=== PATIENT | female | born 1935 | race Hispanic/Latino ===

== ENCOUNTER 2017-05-14 12:01 | Observation (INO) | payer OTHER, MEDICARE ==
[~2017-05-14] VITALS: Ht 152.4 cm; Wt 64.0 kg
[2017-05-14 12:46] LABS: BASOPHILS % (AUTO) 0.5 % (0.0-5.0); EOSINOPHILS % (AUTO) 1.5 % (0.0-8.0); LYMPHOCYTES % (AUTO) 36.5 % (21.0-51.0); MEAN CORPUSCULAR HEMOGLOBIN 29.4 pg (27.0-33.0); MEAN CORPUSCULAR HGB CONC 34.5 g/dL (32.0-36.0); MEAN CORPUSCULAR VOLUME 85.1 fL (79-99); MONOCYTES % (AUTO) 11.7 % (3.0-13.0); NEUTROPHILS % (AUTO) 49.8 % (40.0-77.0); PLATELET COUNT (AUTO) 253 K/uL (130-400); RED BLOOD CELL COUNT(AUTO) 4.11 MIL/uL (4.00-5.50); WHITE BLOOD COUNT (AUTO) 9.9 K/uL (4.8-10.8)
[2017-05-14 13:04] LABS: INR 0.96 (0.85-1.15); PROTHROMBIN TIME 10.1 SEC (9.6-11.6)
[2017-05-14 13:14] LABS: ALBUMIN 3.9 g/dL (3.5-5.0); BILIRUBIN,TOTAL 0.4 mg/dL (0.2-1.0); CREATINE KINASE MB 6.9 ng/mL (0.5-3.6); POTASSIUM 3.3 mmol/L (3.5-5.1); TOTAL PROTEIN, SERUM 7.1 g/dL (6.0-8.3)
[2017-05-14] MEDS ORDERED: LIDOCAINE HCL-MPF 1% 2ML VIAL IVP PRN (15:30)
[2017-05-14] MEDS ORDERED: ACETAMINOPHEN-CODEINE 300/30MG TAB PO PRN ×2 (15:30)
[2017-05-14] MEDS ORDERED: KETOROLAC TROMETHAMINE 15MG/ML IV PRN (15:30)
[2017-05-14] MEDS ORDERED: LACTULOSE 20 GM/30 ML UDCUP PO PRN (15:30)
[2017-05-14] MEDS ORDERED: MORPHINE SULFATE 4 MG/1ML SYG IV PRN (15:30)
[2017-05-14] MEDS ORDERED: ONDANSETRON HCL 4 MG/2 ML VIAL IV PRN (15:30)
[2017-05-14] MEDS ORDERED: MORPHINE SULFATE 2 MG/ML 1ML SYG IV PRN (15:30)
[2017-05-14] MEDS ORDERED: TRAMADOL HCL 50 MG TABLET PO PRN (15:30)
[2017-05-14] MEDS ORDERED: GUAIFENESIN-DM 200/20 MG 10 ML PO PRN (15:30)
[2017-05-14] MEDS ORDERED: MAG HYDROX/AL HYDROX/SIMETH ES 30 ML SUSP UDCUP PO PRN (15:30)
[2017-05-14] MEDS ORDERED: POTASSIUM CHLORIDE 20 MEQ ERTAB PO PRN (15:30)
[2017-05-14] MEDS ORDERED: POTASSIUM CHLORIDE 20MEQ/100ML 100 ML IV PRN (15:30)
[2017-05-14] MEDS ORDERED: HYDRALAZINE HCL 20 MG/ML VIAL IV PRN (15:30)
[2017-05-14] MEDS ORDERED: ACETAMINOPHEN 325 MG TAB PO PRN ×2 (15:30)
[2017-05-14] MEDS ORDERED: NITROGLYCERIN 0.4 MG SL TAB SL PRN (15:30)
[2017-05-14 18:54] LABS: CREATINE KINASE MB 4.2 ng/mL (0.5-3.6); CREATINE KINASE, TOTAL 217 U/L (21-232); MYOGLOBIN 79 ng/mL (10-92); TROPONIN I < 0.04 ng/mL (0.00-0.06)
[2017-05-14] MEDS ORDERED: FAMOTIDINE 20MG TAB 20 MG TAB ONE (20:31)
[2017-05-14] MEDS ORDERED: METOPROLOL TARTRATE 25 MG TAB ONE (20:31)
[2017-05-14] MEDS ORDERED: POTASSIUM CHLORIDE 20 MEQ ERTAB PO ONE (20:31)
[2017-05-14 20:56] VITALS: BP 163/74
[2017-05-14] MEDS: INSULIN HUMULIN R 100 UNIT/ML 3ML SQ SCH (21:00)
[2017-05-14] MEDS: METOPROLOL TARTRATE 25 MG TAB PO SCH (21:00)
[2017-05-14] MEDS: ENOXAPARIN SODIUM 80 MG/0.8 ML SQ SCH (22:29)
[2017-05-14] MEDS: POTASSIUM CHLORIDE 10% ELIXIR 20 MEQ/15 ML UDCUP PO PRN (23:09)
[2017-05-14 23:49] VITALS: BP 136/65
[2017-05-15] MEDS ORDERED: FLUT16H EN (00:18)
[2017-05-15] MEDS ORDERED: FURO20TA4 PO (00:18)
[2017-05-15] MEDS ORDERED: LEVO75TA10 PO (00:18)
[2017-05-15] MEDS ORDERED: ATOR20TA65 PO (00:18)
[2017-05-15] MEDS ORDERED: AEC81 PO (00:18)
[2017-05-15] MEDS ORDERED: INSU10VI4 SQ ×2 (00:18)
[2017-05-15] MEDS ORDERED: OMEP20CA10 PO (00:44)
[2017-05-15] MEDS ORDERED: METO25TA6 PO (00:44)
[2017-05-15] MEDS ORDERED: BACL10TA PO (00:44)
[2017-05-15] MEDS ORDERED: FAMO40TA7 PO (00:44)
[2017-05-15] MEDS ORDERED: METF-526 PO (00:44)
[2017-05-15] MEDS ORDERED: TRAM50TA4 PO ×2 (00:44)
[2017-05-15] MEDS ORDERED: DONE5TAB33 PO (00:44)
[2017-05-15] MEDS ORDERED: PREG50 PO (00:44)
[2017-05-15] MEDS: POTASSIUM CHLORIDE 10% ELIXIR 20 MEQ/15 ML UDCUP PO PRN (01:36)
[2017-05-15 02:32] LABS: CREATINE KINASE, TOTAL 173 U/L (21-232); MYOGLOBIN 58 ng/mL (10-92); TROPONIN I < 0.04 ng/mL (0.00-0.06)
[2017-05-15 02:39] LABS: CREATININE 0.9 mg/dL (0.5-1.5); POTASSIUM 4.8 mmol/L (3.5-5.1)
[2017-05-15 03:55] VITALS: BP 143/70
[2017-05-15] MEDS: INSULIN HUMULIN R 100 UNIT/ML 3ML SQ SCH ×4 (06:04→21:00)
[2017-05-15] MEDS: LEVOTHYROXINE 75 MCG TABLET PO SCH (06:11)
[2017-05-15 07:31] VITALS: BP 131/52
[2017-05-15] MEDS ORDERED: PREGABALIN 25 MG CAP PO ONE (09:00)
[2017-05-15] MEDS ORDERED: DONEPEZIL HCL 5 MG TAB PO SCH ×2 (09:00→21:00)
[2017-05-15] MEDS ORDERED: FAMOTIDINE 20MG TAB 20 MG TAB PO SCH ×2 (09:00→21:00)
[2017-05-15] MEDS: DRONEDARONE HYDROCHLORIDE 400 MG TABLET PO SCH ×2 (09:06→21:27)
[2017-05-15] MEDS: METOPROLOL TARTRATE 25 MG TAB PO SCH ×2 (09:06→21:28)
[2017-05-15] MEDS: FUROSEMIDE 40 MG TABLET PO SCH (09:06)
[2017-05-15] MEDS: ENOXAPARIN SODIUM 80 MG/0.8 ML SQ SCH ×2 (09:07→21:27)
[2017-05-15] MEDS: ASPIRIN 81MG TAB.CHEW PO SCH (09:12)
[2017-05-15] MEDS: FLUTICASONE PROPIONATE 50MCG/SPRAY 16 GM BOTTLE EN SCH (09:15)
[2017-05-15] MEDS ORDERED: BACLOFEN 10 MG TABLET PO PRN (10:45)
[2017-05-15 11:33] VITALS: BP 116/50
[2017-05-15] MEDS: METFORMIN HCL 500 MG TABLET PO SCH (16:25)
[2017-05-15 16:30] VITALS: BP 137/62
[2017-05-15 19:47] VITALS: BP 152/76
[2017-05-15] MEDS ORDERED: ATORVASTATIN CALCIUM 20 MG TABLET PO SCH (21:00)
[2017-05-15 23:43] VITALS: BP 143/78
[2017-05-16 03:56] VITALS: BP 119/50
[2017-05-16] MEDS: INSULIN HUMULIN R 100 UNIT/ML 3ML SQ SCH ×2 (06:13→11:39)
[2017-05-16] MEDS: LEVOTHYROXINE 75 MCG TABLET PO SCH (06:26)
[2017-05-16 07:35] VITALS: BP 136/60
[2017-05-16] MEDS: METFORMIN HCL 500 MG TABLET PO SCH (08:09)
[2017-05-16] MEDS: ASPIRIN 81MG TAB.CHEW PO SCH (08:10)
[2017-05-16] MEDS: DRONEDARONE HYDROCHLORIDE 400 MG TABLET PO SCH (08:10)
[2017-05-16] MEDS: FUROSEMIDE 40 MG TABLET PO SCH (08:10)
[2017-05-16] MEDS: ENOXAPARIN SODIUM 80 MG/0.8 ML SQ SCH (08:11)
[2017-05-16] MEDS: METOPROLOL TARTRATE 25 MG TAB PO SCH (08:12)
[2017-05-16] MEDS: FLUTICASONE PROPIONATE 50MCG/SPRAY 16 GM BOTTLE EN SCH (08:17)
[2017-05-16] MEDS ORDERED: PREGABALIN 25 MG CAP PO SCH (09:00)
[2017-05-16] MEDS ORDERED: INSULIN HUMULIN 70/30 100 UNIT/ML 3ML SQ SCH (09:00)
[2017-05-16] MEDS ORDERED: DRON400T2 PO (12:02)
[2017-05-16 12:22] VITALS: BP 122/48
== END 2017-05-16 13:45 | disposition home or self-care (01) ==
LOC: EDH 12:01 → EDHIP 14:58 → 2DH 20:41
PROVIDERS: ADMIT Internal Medicine; ATTEND Internal Medicine
DX: I48.0 Paroxysmal atrial fibrillation (principal); I10 Essential (primary) hypertension; E78.5 Hyperlipidemia, unspecified; E11.9 Type 2 diabetes mellitus without complications; E03.9 Hypothyroidism, unspecified; Z79.899 Other long term (current) drug therapy
CPT/HCPCS: 36415 ×2; 71045; 80048; 80053; 82550 ×3; 82553 ×3; 82948 ×9; 83735; 83874 ×2; 83880; 84443; 84484 ×3; 85025; 85610; 85730; 93005 ×2; 93306; 96372 ×3; 96374; 99291; G0378 ×47; J1650 ×4; J1815 ×2; J2405